=== PATIENT | female | born 1940 | race Caucasian/White ===

== ENCOUNTER → 2017-07-12 | Outpatient (CLI) | payer OTHER | LOC: FIMAGING 12:40 | PROVIDERS: ATTEND Physician Assistant | DX: Z13.820 Encounter for screening for osteoporosis (principal); M85.832 Other specified disorders of bone density and structure, left forearm ==

== ENCOUNTER → 2018-06-15 | Outpatient (CLI) | payer OTHER | LOC: FIMAGING 08:44 | PROVIDERS: ATTEND Physician Assistant | DX: Z12.31 Encounter for screening mammogram for malignant neoplasm of breast (principal) ==

== ENCOUNTER 2018-08-12 05:44 | Day surgery (SDC) | payer OTHER ==
[2018-08-12] MEDS ORDERED: ceFAZolin 2 GM/DEXTROSE 100 ML IV ONE (05:50)
[2018-08-12] MEDS ORDERED: LR 1,000 ML IV ONE (05:51)
[2018-08-12] MEDS ORDERED: BUPIVACAINE 0.5% 30 ML SDV ONE (06:58)
--- NOTE | 2018-08-12 07:02 | PDANEPAE ---
ANE History of Present Illness Right inguinal hernia robotic ANE Past Medical History - Cardiovascular History Hx Hypertension: No Hx Arrhythmias: No Hx Chest Pain: No Hx Coronary Artery / Peripheral Vascular Disease: No Hx CHF / Valvular Disease: No Hx Palpitations: No - Pulmonary History Hx COPD: No Hx Asthma/Reactive Airway Disease: No Hx Recent Upper Respiratory Infection: No Hx Oxygen in Use at Home: No Hx Sleep Apnea: No Sleep Apnea Screening Result - Last Documented: Negative - Neurologic History Hx Cerebrovascular Accident: No Hx Seizures: No Hx Dementia: No - Endocrine History Hx Diabetes: No Hypothyroid: No Hyperthyroid: No Obesity: mild - Renal History Hx Renal Disorders: No - Liver History Hx Hepatic Disorders: No - Neurological & Psychiatric Hx Hx Neurological and Psychiatric Disorders: No - Cancer History Hx Cancer: No - Congenital Disorder History Hx Congenital Disorders: No - GI History GERD: mild Hx Gastrointestinal Disorders: Yes Gastrointestinal History Comment: GERD - Other Health History Other Health History: NEG - Chronic Pain History Chronic Pain: No - Surgical History Prior Surgeries: R TKA. HYSTERECTOMY. BREAST BX X2 ANE Review of Systems Review of systems is: negative Review of Systems: - Exercise capacity METS (RN): 5 METS ANE Patient History - Allergies Allergies/Adverse Reactions: codeine Allergy (Verified 06/07/13 08:11) - Home Medications Home Medications: Aspirin [Aspirin 81mg (OTC)] 81 mg PO DAILY 01/25/13 [Last Taken 02/13/13] Atorvastatin Calcium [Lipitor 10 mg (RX)] 10 mg PO DAILY@1800 01/25/13 [Last Taken 08/11/18] Calcium Carbonate [Oyster Shell Calcium 500 mg (OTC)] 500 mg PO DAILY 01/25/13 [ Last Taken 08/07/18] - NPO status NPO Status: no food or drink >8 hours NPO Since - Liquids (Date): 08/12/18 NPO Since - Liquids (Time): 02:15 NPO Since - Solids (Date): 08/11/18 NPO Since - Solids (Time): 20:00 - Anes Hx Anes Hx: no prior problems - Smoking Hx Smoking Status: Former smoker Marijuana use: Yes - Alcohol Use Alcohol Use: Rarely - Family Anes Hx Family Anes Hx: none ANE Labs/Vital Signs - Vital Signs Blood Pressure: 144/64 Heart Rate: 76 Respiratory Rate: 16 O2 Sat (%): 97 Height: 163.83 cm Weight: 53.524 kg ANE Physical Exam - Airway Neck exam: decreased ROM Mouth exam: normal dental/mouth exam, small mouth opening - Pulmonary Pulmonary: no respiratory distress, no rales or rhonchi - Cardiovascular Cardiovascular: regular rate and rhythym, no murmur, rub, or gallop - ASA Status ASA Status: II ANE Anesthesia Plan Anesthesia Plan: general endotracheal anesthesia Specialized Airway: video laryngoscope
--- NOTE | 2018-08-12 07:05 | PDHPUP ---
History & Physical Update H&P update statement: This history and physical update is based on an assessment of the patient which was completed after admission or registration (within 24 hours), but prior to the surgery/procedure. H&P update: H&P reviewed & patient examined, no change in patient's condition since H&P completed
[2018-08-12] MEDS ORDERED: PROPOFOL/EMULSION 500 MG/50 ML BOTTLE IV ONE (07:08)
[2018-08-12] MEDS ORDERED: fentaNYL 250 MCG/5 ML INJ ONE (07:08)
[2018-08-12] MEDS ORDERED: GLYCOPYRROLATE 0.2 MG/1 ML VIAL ONE (07:37)
[2018-08-12] MEDS ORDERED: DEXAMETHASONE 4 MG/ML VIAL ONE (07:37)
[2018-08-12] MEDS ORDERED: ROCURONIUM 50 MG/5 ML VIAL ONE (07:37)
[2018-08-12] MEDS ORDERED: LIDOCAINE 2% 5 ML SDV ONE (07:37)
[2018-08-12] MEDS ORDERED: ONDANSETRON 4 MG/2 ML VIAL ONE (07:38)
[2018-08-12] MEDS ORDERED: PROPOFOL 200 MG/20 ML VIAL ONE (07:47)
[2018-08-12] MEDS ORDERED: HYDROmorphONE/DILAUDID 2 MG/ML INJ IVP PRN (08:46)
[2018-08-12] MEDS ORDERED: LABETALOL HCL 5 MG/ML 20 ML MDV IVP PRN (08:46)
[2018-08-12] MEDS ORDERED: ALBUTEROL 3 ML DEYVIAL IH PRN (08:46)
[2018-08-12] MEDS ORDERED: ACETAMINOPHEN 500 MG TAB PO PRN (08:46)
[2018-08-12] MEDS ORDERED: oxyCODONE IR 5 MG TAB PO PRN (08:46)
[2018-08-12] MEDS ORDERED: PROMETHAZINE HCL 25 MG/ML INJ IVP PRN (08:46)
[2018-08-12] MEDS ORDERED: fentaNYL 100 MCG/2 ML INJ IVP PRN (08:46)
[2018-08-12] MEDS ORDERED: ONDANSETRON 4 MG/2 ML VIAL IVP PRN (08:46)
[2018-08-12] MEDS ORDERED: NALOXONE HCL 0.4 MG/ML INJ IVP PRN (08:46)
[2018-08-12] MEDS ORDERED: SUGAMMADEX SODIUM 200 MG/2 ML VIAL IVP ONE (09:08)
--- NOTE | 2018-08-12 09:14 | POSTOPPROG ---
Post Op Note Date of Operation: 08/12/18 Surgeon: Adonis Levine Microfiche Duplicator: Marko Anesthesiologist: Todd Anesthesia: GET(General Endotracheal) Pre-op Diagnosis: R femoral hernia Post-op Diagnosis: R direct inguinal hernia Indication: same Procedure: Robotic RIH repair with mesh Findings: R direct inguinal hernia Inf/Abcess present in the surg proc area at time of surgery?: No Depth: Organ Space EBL: Minimal
--- NOTE | 2018-08-12 11:02 | POSTANESTH ---
Post Anesthetic Evaluation Cardiovascular Status: Normal, Stable Respiratory Status: Normal, Stable Level of Consciousness/Mental Status: Can Participate in Eval Pain Control: Adequate, Prn Tx Ordered Nausea/Vomiting Control: Adequate, Prn Tx Ordered Complications Possibly Related to Anesthesia: None Noted
[2018-08-12 12:16] VITALS: BP 141/59
--- NOTE | 2018-08-15 11:23 | GOP ---
[f rep st] OPERATIVE REPORT DATE OF OPERATION: 08/12/2018 SURGEON: Adonis Levine MD MANAGER BEHAVIOR: Marcia Zhu, nurse practitioner. ANESTHESIOLOGIST: Carolyn Boroks MD. PREOPERATIVE DIAGNOSIS: Right femoral hernia. POSTOPERATIVE DIAGNOSIS: Right femoral hernia. PROCEDURE PERFORMED: Robotic-assisted laparoscopic right femoral hernia repair. FINDINGS: Patient was found to have a large femoral hernia which was easily reducible with no eviden ce of herniation on the left. ESTIMATED BLOOD LOSS: Negligible. DESCRIPTION OF PROCEDURE: The patient was taken to the operating room where she received satisfactor y general endotracheal anesthesia. She was placed in supine position and slightly in Trendelenburg a nd prepped and draped in the usual sterile fashion. A supraumbilical incision was made. A Veress ne edle inserted. Pneumoperitoneum was established. Trocar was introduced. Good visualization was obtained. The 2 ot her trocars were placed under direct vision lateral to the central port. The robot was then docked t o the central camera port and targeted, and after targeting was complete, the instruments were introd uced into the lower abdomen. The hernia was well visualized. An incision was made in the peritoneum lateral and above the inguina l canal, and this extended across to the umbilical ligament and somewhat down the umbilical ligament. The hypogastric vessels were from the peritoneal flap, and the flap was developed down to the pubic tubercle and Yimi ligament all way over medially to the femoral canal. The flap was dev eloped laterally down to the psoas muscle. The hernia sac was carefully dissected off the vessels an d reduced, and the entire inguinal area was then well exposed. The round ligament was also dissected off the peritoneal flap and left in place. A 3D mesh light large was introduced and placed over the inguinal floor. It was then sutured in place at the pubic tubercle and at the femoral canal with 3- 0 Vicryl sutures, as well as 2 sutures placed on top of the mesh. The peritoneum was then closed wit h a running V-Daniel suture closing the peritoneal defect. Hemostasis was assured. Trocars were then r emoved under direct vision, and pneumoperitoneum was released. Trocar sites were infiltrated with 0. 5% Marcaine and closed with 4-0 Monocryl subcuticular stitch for the skin. All layers were infiltrat ed with 0.5% Marcaine. COMPLICATIONS: None. /[id number]/MODL
== END 2018-08-12 12:10 | disposition home or self-care (01) ==
LOC: FSGY 05:44
PROVIDERS: ATTEND Surgery
PROC: 0YU54JZ Supplement Right Inguinal Region with Synthetic Substitute, Percutaneous Endoscopic Approach (ICD-10-PCS; principal; 2018-08-12 07:15)
PROC: 8E0W4CZ Robotic Assisted Procedure of Trunk Region, Percutaneous Endoscopic Approach (ICD-10-PCS; principal; 2018-08-12 07:15)
DX: K40.90 Unilateral inguinal hernia, without obstruction or gangrene, not specified as recurrent (principal); Z90.710 Acquired absence of both cervix and uterus; Z96.651 Presence of right artificial knee joint
CPT/HCPCS: C1781; J0690; J1100; J2405; J2704; J3010